=== PATIENT | male | born 1985 | race Caucasian/White ===

== ENCOUNTER 2019-03-20 09:33 | Emergency (ER) | payer OTHER ==
[~2019-03-20] VITALS: Ht 167.6 cm; Wt 63.5 kg
[2019-03-20 09:37] VITALS: BP 135/95
[2019-03-20] MEDS ORDERED: MOBIC7.5 MG PO (10:30)
[2019-03-20] MEDS ORDERED: LIDOCAINE PAIN1 EACH TRANSDERM (10:30)
== END 2019-03-20 10:31 | disposition home or self-care (01) ==
LOC: ER 09:33 → EDSEX 09:33 → ER 10:31
DX: M54.5 Low back pain (principal); V89.2XXA Person injured in unspecified motor-vehicle accident, traffic, initial encounter; Y92.89 Other specified places as the place of occurrence of the external cause; Y93.89 Activity, other specified; Y99.8 Other external cause status